=== PATIENT | female | born 1975 | race Caucasian/White ===

== ENCOUNTER 2022-04-19 15:33 | Outpatient (CLI) | payer OTHER, SELFPAY ==
[2022-04-19 21:10] LABS: Albumin* 4.5 g/dL (3.3-5.0)
[2022-04-19 21:11] LABS: Chloride* 107 mmol/L (96-114); Sodium* 140 mmol/L (135-149)
[2022-04-19 21:13] LABS: Alanine Aminotransferase* 20 U/L (4-35); Alkaline Phosphatase* 82 U/L (40-150); Aspartate Amino Transferase* 20 U/L (12-35); Bilirubin Total* 0.4 mg/dL (0.1-1.5); Blood Urea Nitrogen* 11 mg/dL (5-24); Carbon Dioxide* 29 mmol/L (20-32); Cholesterol* 178 mg/dL (90-199); Creatinine* 0.6 mg/dL (0.5-1.5); Estimated Glomerular Filt Rate 111 ml/min; Glucose* 98 mg/dL (60-115); Total Protein* 7.3 g/dL (6.0-8.3)
[2022-04-19 21:14] LABS: Calcium* 9.5 mg/dL (8.4-10.6); HDL Cholesterol* 75 mg/dL (>=50); LDL Cholesterol Calculated 72 mg/dL (<100); Triglycerides* 153 mg/dL (40-149)
[2022-04-19 21:42] LABS: TSH With Reflex to FT4* 0.947 uIU/mL (0.270-4.200)
== END 2022-04-19 15:34 | disposition home or self-care (01) ==
PROVIDERS: Visit Provider Family Medicine
DX: Z00.00 Encounter for general adult medical examination without abnormal findings (principal); R53.83 Other fatigue; F41.9 Anxiety disorder, unspecified; Z13.6 Encounter for screening for cardiovascular disorders
CPT/HCPCS: 80053; 80061; 84443

== ENCOUNTER 2022-05-11 11:02 | Outpatient (CLI) | payer OTHER, SELFPAY ==
--- NOTE | 2022-05-11 11:15 | CRLHL7_ITS ---
For Patients: As a result of the Cures Act, medical imaging exams and procedure reports are released immediately into your electronic medical record. You may view this report before your referring provider. If you have questions, please contact your health care provider. BILATERAL BREAST ULTRASOUND CLINICAL HISTORY: Six-month follow-up BILATERAL structures. COMPARISON: Outside ultrasound exam 11/09/2021. TECHNIQUE: Real-time ultrasound imaging of BILATERAL breast with imaging documentation. FINDINGS: Targeted RIGHT breast ultrasound 9 o`clock 4 cm from the nipple again demonstrates a solid and cystic nodule at mid depth measuring 8 x 4 x 5 millimeters representing a benign complicated cyst. No shadowing. No abnormal vascularity. Targeted LEFT breast ultrasound performed at 2 o`clock 8 cm from the nipple. In this location there is a simple circumscribed anechoic cyst with increased through-transmission measuring 5 x 4 x 4 millimeters. This is unchanged. Targeted LEFT breast ultrasound at 11 o`clock 3 cm from the nipple again demonstrates a circumscribed hypoechoic nodule measuring 6 x 3 x 6 millimeters, compatible with fibroadenoma. 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 No evidence of malignancy. RECOMMENDATIONS: Resume BILATERAL screening mammography November 2022. Results and recommendations were discussed with the patient at the time of the exam. BI-RADS Category 2: Benign A lay language report of this examination will be provided to the patient. Dictated by Teo Durham MD @ 05/11/2022 1:23:47 PM [email or web address]/Dictated by: Teo Durham MD @ 05/11/2022 1:23:00 PM (Electronically Signed)
== END 2022-05-11 11:03 | disposition home or self-care (01) ==
PROVIDERS: Visit Provider Obstetrics & Gynecology
DX: N63.20 Unspecified lump in the left breast, unspecified quadrant (principal); N60.01 Solitary cyst of right breast
CPT/HCPCS: 76642

== ENCOUNTER 2023-11-09 16:08 | Outpatient (CLI) | payer OTHER, SELFPAY ==
--- OUTSIDE RECORDS SUMMARY | 2023-11-09 16:13 | XMS_ITS | Encounter Summary ---
Author Organization [facility] Address [address] [address] Care Team Providers Care Kettleman Name Role Phone Kiera Brandon MD Primary Care Provide r Encounter Details Date Type Department Care Team (Late st Contact Info) Description 08/03/2012 Correspondence [facility] Obstetrics and Gynecology [address] [place] [address] Lita Villegas MD [address] [place], [place] [id number] MEDICAL STATEMNET Social History Tobacco Use Types Packs/Day Years Used Date Smoking Tobacco: Every Day Cigarettes 0.5 20 Smokeless Tobacco: Never Comments:12 cigarettes per d ay Alcohol Use Standard Drinks/Week Comments Yes 0 (1 standard drink = 0.6 oz pur e alcohol) have 4 every night beer Sex and Gender Information Value Date Recorded Sex Assigned at Not on file Gender Identity Not on file Sexual Orientation Not on file documented as of this encounter Progress Notes * Lita Villegas MD - 08/03/2012 12:00 AM CDT documented in this encounter Plan of Treatment Not on file documented as of this encounter Visit Diagnoses Not on filedocumented in this encounter Care Teams Kettleman Relationship Specialty Start Date End Date Kiera Brandon MD [address] [address] PCP - General Obstetrics Gynecology 10/29/21 documented as of this encounter
--- OUTSIDE RECORDS SUMMARY | 2023-11-09 16:13 | XMS_ITS | Encounter Summary ---
Author Organization [facility] Address [address] [address] Care Team Providers Care Commander Internal Affairs Name Role Phone Kiera Brandon MD Primary Care Provide r Encounter Details Date Type Department Care Team (Late st Contact Info) Description 07/27/2011 Scanned History External to Transferred Record, Provider LEEANN COBOS Social History Tobacco Use Types Packs/Day Years Used Date Smoking Tobacco: Never Assessed Sex and Gender Information Value Date Recorded Sex Assigned at Not on file Gender Identity Not on file Sexual Orientation Not on file documented as of this encounter Progress Notes * Transferred Record, Provider - 07/27/2011 12:00 AM CDT ATIONS PROJECT MANAGER documented in this encounter Plan of Treatment Not on file documented as of this encounter Visit Diagnoses Not on filedocumented in this encounter Care Teams Commander Internal Affairs Relationship Specialty Start Date End Date Kiera Brandon MD [address] [phone] PCP - General Obstetrics Gynecology 10/29/21 documented as of this encounter
--- OUTSIDE RECORDS SUMMARY | 2023-11-09 16:13 | XMS_ITS | Encounter Summary ---
Author Organization [facility] Address [address], [place] [address] Care Team Providers Care Inside Parts Sales Name Role Phone Kiera Brandon MD Primary Care Provide r Encounter Details Date Type Department Care Team (Late st Contact Info) Description 07/25/2012 Consent for Procedure/Treatme nt [facility] Department INFORMED CONSENT RECORD Social History Tobacco Use Types Packs/Day Years [...] as of this encounter Progress Notes * [facility], PROVIDER - 07/25/2012 12:00 AM CDT documented in this encounter Plan of Treatment Not on file documented as of this encounter Visit Diagnoses Not on filedocumented in this encounter Care Teams Inside Parts Sales Relationship Specialty Start Date End Date Kiera Brandon MD [address] [facility] [address] [place] [address] PCP - General Obstetrics Gynecology 10/29/21 documented as of this encounter
--- OUTSIDE RECORDS SUMMARY | 2023-11-09 16:13 | XMS_ITS | Clinical Summary ---
Author Organization [facility] Address [address] [place] [address] Care Team Providers Care Sterile Proc Tech Name Role Phone Kiera Brandon MD Primary Care Provide r Source Comments You are receiving this document as you are listed as the primary care provider,follow-up provider, or the patient has been referred to you for consultation.This is in compliance with the Medicare and[facility] E[facility] Incentive Program,which states Providers who transition their patient to another setting of careor provider of care or refers their patient to another provider of care shouldprovide summary care record for each transition of care or referral. [facility] Allergies Active Allergy Reactions Criticality Noted Date Comments Hydromorphone Hcl Other, see comments 3 Muscle spasm Medications Medication Sig Dispensed Refills Start Date End Date Status Probiotic Product (PROBIOTIC DAILY OR) Active CRANBERRY OR Active Active Problems Problem Noted Date Diagnosed Date Perimenopause 11/25/2020 Insomnia 11/25/2020 Hot flashes, menopausal 11/25/2020 Lung nodules 10/19/2016 Endometriosis 08/23/2012 Overview: Diagnosed via laparoscopy in 07/2012, s/p LSO Vitamin D deficiency 04/24/2012 Pelvic pain in female 02/23/2012 Tobacco use disorder 01/02/2012 Resolved Problems Problem Noted Date Diagnosed Date Resolved Date Vertigo 08/20/2015 01/22/2016 IUD (intrauterine device) in place 02/10/2012 08/23/2012 Overview: Copper T paraguard IUD Ovarian cyst 01/02/2012 08/23/2012 Immunizations Name Administration Dates Next Due Jim COVID-19 Vaccine 02/24/2021,08/13/2020 Family History Medical History Relation Name Comments Cancer, Colon Maternal Uncle Coronary Artery Disease Other 2 uncl e Hypertension Other 3 uncle Cancer, Breast Negative Family History Cancer, Ovary Negative Family History Cancer, Pancreatic Negative Family History Cancer, Prostate Negative Family History Cancer, Uterine Negative Family History Liver Disease Negative Family History Thyroid Disorder Negative Family History Relation Name Status Comments Maternal Uncle Other 1 Other 2 Other 3 Social History Tobacco Use Types Packs/Day Years Used Date Smoking Tobacco: Every Day Cigarettes 0.5 20 Started: 01/06/1999; Last attempted to quit: 01/06/2019 Smokeless Tobacco: Never Alcohol Use Standard Drinks/Week Comments Yes 0 (1 standard drink = 0.6 oz pur e alcohol) PHQ-2 Answer Date Recorded PHQ-2 Score 0 10/26/2020 Sex and Gender Information Value Date Recorded Sex Assigned at Not on file Gender Identity Not on file Sexual Orientation Not on file Last Filed Vital Signs Vital Sign Reading Time Taken Comments Blood Pressure 125/85 10/29/2021 11:18 AM CDT Pulse 85 10/29/2021 11:18 AM CDT Temperature 37 ??C (98.6 ??F) 10/26/2021 3:15 PM CDT Respiratory Rate 22 01/06/2019 1:15 PM CDT Oxygen Saturation 97% 10/26/2021 3:15 PM CDT Inhaled Oxygen Concentration - - Weight 64.7 kg (142 lb 9.6 oz) 10/29/2021 11:18 AM CDT Height 165.1 cm (5' 5) 07/24/2012 10:16 AM CDT Body Mass Index 23.73 07/24/2012 10:16 AM CDT Plan of Treatment Health Maintenance Due Date Last Done Comments Cervical Cancer Screening Due 1974 Colon Cancer Screening Plan Due 1974 Hep C Screening (Preventive Services) 1974 Pneumococcal (1 - PCV) 1980 HIV Screening (Preventive Services) 1990 Adult Preventive Visit 1992 DTaP/Tdap/Td (1 - Tdap) 1993 HepB (1) 1993 Cholesterol 2019 Mammogram 11/09/2022 11/09/2021 COVID-19 Vaccine (3 - 2022-2 4 season) 2022 02/24/2021, 08/13/2020 Influenza (#1) 2023 Zoster/Shingles (1 of 2) 2024 HepA Aged Out No longer eligi ble based on patient's age to complete this topic Hib Aged Out No longer eligi ble based on patient's age to complete this topic IPV (Polio) Aged Out No longer eligi ble based on patient's age to complete this topic MCV4 Aged Out No longer eligi ble based on patient's age to complete this topic Procedures Procedure Name Priority Date/Time Associated Diagnosis Comments MM MAMMOGRAM DIAG BILAT W 3D DALI Routine 11/09/2021 3:52 PM CDT Breast pain, left from Last 3 Months or Most Recently Relevant to Health Maintenance Results * MM Mammogram Diag Bilat W 3D Dali (11/09/2021 3:52 PM CDT) Anatomical Region Laterality Modality Breast Bilateral Mammography 11/09/2021 3:52 PM CDT Narrative 11/09/2021 4:15 PM CDT EXAM: MM MAMMOGRAM DIAG BILAT W 3D DALI, MM US BREAST BILAT LOCATION: [facility] DATE/TIME: 11/09/2021 3:52 PM INDICATION: 46-year-old female presents with left breast pain. COMPARISON: None. MAMMOGRAPHIC FINDINGS: Bilateral full-field digital diagnostic mammograms performed. There are scattered areas of fibroglandular density. Images evaluated with the assistance of CAD. Breast tomosynthesis was used in interpretation. There is an asymmetry in the lateral right breast at the 9:00 position, middle depth. Benign-appearing intramammary lymph node is present in the upper outer quadrant of the right breast. There is an obscured mass in the upper inner quadrant of the left breast at the 11:00 to 12:00 position, anterior depth. An asymmetry is also present in the upper outer quadrant of the left breast at the posterior depth. Benign-appearing intramammary lymph nodes are present in the upper outer quadrant of the left breast at the middle depth. ULTRASOUND FINDINGS: Targeted ultrasound of the right breast was performed with claims representative images submitted. In the right breast at the 9:00 position 4 cm from nipple, there is a probably benign cluster of adjacent cysts versus complicated cyst with internal debris, measuring 4 x 7 x 4 mm. No internal color vascular flow. The finding is thought to be probably benign. Follow-up ultrasound in 6 months is recommended to evaluate for stability. Targeted ultrasound the left breast was performed claims representative images submitted at the 11:00 position, 3 cm from nipple, which demonstrate a well-circumscribed oval hypoechoic mass measuring 6 x 4 x 6 mm. No internal color vascular flow. The mass is thought to be probably benign demonstrating imaging appearance is suggestive of a fibroadenoma. Follow-up ultrasound 6 months is recommended to evaluate for stability. Targeted ultrasound the upper outer quadrant of the left breast was performed with claims representative images submitted at the 2:00 position, 8 cm from nipple, which demonstrates a simple cyst measuring 5 x 3 x 4 mm. No suspicious finding.. IMPRESSION: 1. ??Probably benign mass in the left breast at the 11:00 position and probably benign cluster of cysts versus complicated cyst in the right breast at the 9:00 position, as detailed above. Follow-up bilateral breast ultrasound 6 months is recommended to evaluate for stability. 2. ??No imaging correlate to reported symptom of breast pain, for which management should be based clinically. The patient was given informational handout regarding breast pain. ACR BI-RADS Category 3: Probably Benign. Results and recommendations were discussed with the patient. Ultrasound imaging was performed by both technologist and radiologist. Procedure Note Nai Ugarte MD - 11/09/2021 EXAM: MM MAMMOGRAM DIAG BILAT W 3D DALI, MM US BREAST BILAT LOCATION: [facility] DATE/TIME: 11/09/2021 3:52 PM INDICATION: 46-year-old female presents with left breast pain. COMPARISON: None. MAMMOGRAPHIC FINDINGS: Bilateral full-field digital diagnostic mammogramsperformed. There are scattered areas of fibroglandular density. Imagesevaluated with the assistance of CAD. Breast tomosynthesis was used ininterpretation. There is an asymmetry in the lateral right breast at the9:00 position, middle depth. Benign-appearing intramammary lymph node ispresent in the upper outer quadrant of the right breast. There is anobscured mass in the upper inner quadrant of the left breast at the 11:00to 12:00 position, anterior depth. An asymmetry is also present in theupper outer quadrant of the left breast at the posterior depth.Benign- appearing intramammary lymph nodes are present in the upper outerquadrant of the left breast at the middle depth. ULTRASOUND FINDINGS: Targeted ultrasound of the right breast was performedwith claims representative images submitted. In the right breast at the 9:00position 4 cm from nipple, there is a probably benign cluster of adjacentcysts versus complicated cyst with internal debris, measuring 4 x 7 x 4mm. No internal color vascular flow. The finding is thought to be probablybenign. Follow-up ultrasound in 6 months is recommended to evaluate forstability. Targeted ultrasound the left breast was performed claims representative imagessubmitted at the 11:00 position, 3 cm from nipple, which demonstrate awell-circumscribed oval hypoechoic mass measuring 6 x 4 x 6 mm. Nointernal color vascular flow. The mass is thought to be probably benigndemonstrating imaging appearance is suggestive of a fibroadenoma.Follow-up ultrasound 6 months is recommended to evaluate for stability. Targeted ultrasound the upper outer quadrant of the left breast wasperformed with claims representative images submitted at the 2:00 position, 8 cmfrom nipple, which demonstrates a simple cyst measuring 5 x 3 x 4 mm. Nosuspicious finding.. IMPRESSION: 1. Probably benign mass in the left breast at the 11:00 position andprobably benign cluster of cysts versus complicated cyst in the rightbreast at the 9:00 position, as detailed above. Follow-up bilateral breastultrasound 6 months is recommended to evaluate for stability. 2. No imaging correlate to reported symptom of breast pain, for whichmanagement should be based clinically. The patient was given informationalhandout regarding breast pain. ACR BI-RADS Category 3: Probably Benign. Results and recommendations were discussed with the patient. Ultrasoundimaging was performed by both technologist and radiologist. Kiera Brandon MD RAD ANTHONY from Last 3 Months or Most Recently Relevant to [employer] Maintenance Advance Directives * Full Code (Latest Code Status on File) Date Activated Date Inactivated Comments 07/25/2012 5:35 AM 07/25/2012 8:29 PM Care Teams Sterile Proc Tech Relationship Specialty Start Date End Date Kiera Brandon MD [address] [address] PCP - General Obstetrics Gynecology 10/29/21
--- OUTSIDE RECORDS SUMMARY | 2023-11-09 16:13 | XMS_ITS | Encounter Summary ---
Author Organization [facility] Address [address] [place] [address] Care Team Providers Care Park Landscape Architect Name Role Phone Kiera Brandon MD Primary Care Provide r Reason for Visit * Reason Comments QUESTIONS, GENERAL SHINGLES Encounter Details Date Type Department Care Team (Late st Contact Info) Description 05/31/2023 Telephone Careline [address] [place] [address] Unassigned, Provider [address] [place] [address] QUESTIONS, GENERAL; SHINGLES Social History Tobacco Use Types Packs/Day Years [...] on file documented as of this encounter Nursing Notes * Soumya Meade - 05/31/2023 3:06 PM CST Verified patient identity using three identifiers: Yes Caller's relationship to patient: Self, Do you have a provider/clinic where you are seen for this? AKIKO/Tony/Lanette/Danie Are you calling about a /CORPORATE RELATIONS MANAGER related concern? No General Questions/Information Describe the reason for call: Patient states she has been exposed to shingles and wondering what precautions she and her partner need to take. Patient did start shingles medication. Plan: If no symptoms present AND clinic is open or will be open within the next 24 hours, route to the clinic silk spooler. GER MANUFACTURING documented in this encounter Plan of Treatment Not on file documented as of this encounter Visit Diagnoses Not on filedocumented in this encounter Care Teams Park Landscape Architect Relationship Specialty [place] [address] [place] [id number] PCP - General Obstetrics Gynecology 10/29/21 documented as of this encounter
== END 2023-11-09 16:09 | disposition home or self-care (01) ==
PROVIDERS: PCP Family Medicine; Visit Provider Family Medicine
DX: R53.83 Other fatigue (principal); K52.9 Noninfective gastroenteritis and colitis, unspecified
CPT/HCPCS: 80053; 84443; 86231; 86258; 86364

== ENCOUNTER 2023-11-17 10:34 | Outpatient (CLI) | payer MEDICAID, SELFPAY ==
--- OUTSIDE RECORDS SUMMARY | 2023-11-17 10:37 | XMS_ITS | Encounter Summary ---
Author Organization [facility] Address [address] [place] [address] Care Team Providers Care Outpatient Interviewing Clerk Name Role Phone Kiera Brandon MD Primary Care Provide r Reason for Visit * Reason Comments QUESTIONS, GENERAL SHINGLES Encounter Details Date Type Department Care Team (Late st Contact Info) Description 05/31/2023 Telephone Careline [address] [place] [address] Unassigned, Provider [address] [place] [address] QUESTIONS, GENERAL; SHINGLES Social History Tobacco Use [...] this? AKIKO/Tony/Lanette/Danie Are you calling about a /RECORD LABEL INTERN related concern? No General Questions/Information Describe the reason for call: Patient states she has been exposed to shingles and wondering what precautions she and her partner need to take. Patient did start shingles medication. Plan: If no symptoms present AND clinic is open or will be open within the next 24 hours, route to the clinic pool servicer. VISION CAMERAMAN documented in this encounter Plan of Treatment Not on file documented as of this encounter Visit Diagnoses Not on filedocumented in this encounter Care Teams Outpatient Interviewing Clerk Relationship Specialty [place] [address] [place] [id number] PCP - General Obstetrics Gynecology 10/29/21 documented as of this encounter
--- OUTSIDE RECORDS SUMMARY | 2023-11-17 10:37 | XMS_ITS | Encounter Summary ---
Author Organization [facility] Address [address], [place] [address] Care Team Providers Care Hot Baller Name Role Phone Kiera Brandon MD Primary [...] Record, Provider - 07/27/2011 12:00 AM CDT NICAL INSTRUCTOR COURSE DEVELOPER documented in this encounter Plan of Treatment Not on file documented as of this encounter Visit Diagnoses Not on filedocumented in this encounter Care Teams Hot Baller Relationship Specialty Start Date End Date Kiera Brandon MD [address] [phone] PCP - General Obstetrics Gynecology 10/29/21 documented as of this encounter
--- OUTSIDE RECORDS SUMMARY | 2023-11-17 10:37 | XMS_ITS | Encounter Summary ---
Author Organization [facility] Address [address], [place] [address] Care Team Providers Care Equities Analyst Name Role Phone Kiera Brandon MD Primary Care Provide r Encounter Details Date Type Department Care Team (Late st Contact Info) Description 08/03/2012 Correspondence [facility] Obstetrics and Gynecology [address] [place] [address] Lita Villegas MD [address] [place], [place] [phone] MEDICAL STATEMNET Social History Tobacco Use Types [...] on filedocumented in this encounter Care Teams Equities Analyst Relationship Specialty Start Date End Date Kiera Brandon MD [address] [address] PCP - General Obstetrics Gynecology 10/29/21 documented as of this encounter
--- OUTSIDE RECORDS SUMMARY | 2023-11-17 10:37 | XMS_ITS | Clinical Summary ---
Author Organization [facility] Address [address] [place] [address] Care Team Providers Care Service Unit Operator Oil Well Name Role Phone Kiera Brandon MD Primary Care Provide r Source Comments You are receiving this document as you are listed as the primary care provider,follow-up provider, or the patient has been referred to you for consultation.This is in compliance with the Medicare and[facility] E[facility] Incentive Program,which states Providers who transition their patient to another setting of careor provider of care or refers their patient to another provider of care shouldprovide summary care record for each transition of care or referral. [facility] Allergies Active Allergy Reactions Criticality Noted Date [...] of the right breast was performed with business center representative images submitted. In the right breast [...] Targeted ultrasound the left breast was performed business center representative images submitted at the 11:00 position, [...] of the left breast was performed with business center representative images submitted at the 2:00 position, [...] 3D DALI, MM US BREAST BILAT LOCATION: [facility] DATE/TIME: 11/09/2021 3:52 PM INDICATION: 46-year-old female [...] ultrasound of the right breast was performedwith business center representative images submitted. In the right breast at the 9:00position 4 cm from nipple, there is a probably benign cluster of adjacentcysts versus complicated cyst with internal debris, measuring 4 x 7 x 4mm. No internal color vascular flow. The finding is thought to be probablybenign. Follow-up ultrasound in 6 months is recommended to evaluate forstability. Targeted ultrasound the left breast was performed business center representative imagessubmitted at the 11:00 position, 3 cm from nipple, which demonstrate awell-circumscribed oval hypoechoic mass measuring 6 x 4 x 6 mm. Nointernal color vascular flow. The mass is thought to be probably benigndemonstrating imaging appearance is suggestive of a fibroadenoma.Follow-up ultrasound 6 months is recommended to evaluate for stability. Targeted ultrasound the upper outer quadrant of the left breast wasperformed with business center representative images submitted at the 2:00 position, [...] 3 Months or Most Recently Relevant to [employer] Maintenance Advance Directives * Full Code (Latest Code Status on File) Date Activated Date Inactivated Comments 07/25/2012 5:35 AM 07/25/2012 8:29 PM Care Teams Service Unit Operator Oil Well Relationship Specialty Start Date End Date Kiera Brandon MD [address] [address] PCP - General Obstetrics Gynecology 10/29/21
--- OUTSIDE RECORDS SUMMARY | 2023-11-17 10:37 | XMS_ITS | Encounter Summary ---
Author Organization [facility] Address [address], [place] [address] Care Team Providers Care Habitat Management Coordinator Name Role Phone Kiera Brandon MD Primary Care Provide r Encounter Details Date Type Department Care Team (Late st Contact Info) Description 07/25/2012 Consent for Procedure/Treatme nt [facility] Department INFORMED CONSENT RECORD Social History Tobacco [...] on filedocumented in this encounter Care Teams Habitat Management Coordinator Relationship Specialty Start Date End Date Kiera Brandon MD [address] [facility] [address] [place] [address] PCP - General Obstetrics Gynecology 10/29/21 documented as of this encounter
--- NOTE | 2023-11-17 10:45 | CRLHL7_ITS ---
For Patients: As a result of the Cures Act, medical imaging exams and procedure reports are released immediately into your electronic medical record. You may view this report before your referring provider. If you have questions, please contact your health care provider. DIGITAL DIAGNOSTIC BILATERAL MAMMOGRAM USING TOMOSYNTHESIS AND COMPUTER-AIDED DETECTION RIGHT BREAST ULTRASOUND CLINICAL HISTORY: RIGHT breast lump. COMPARISON: 11/09/2021. TECHNIQUE: Digital BILATERAL mammogram in four projections with computer-aided detection. Tomosynthesis was used in this interpretation. Real-time ultrasound imaging of RIGHT breast with imaging documentation. BREAST COMPOSITION: There are areas of scattered fibroglandular density. FINDINGS: 3D CC/MLO BILATERAL mammogram images submitted. Benign nodular densities are present bilaterally. No architectural distortion or suspicious calcifications. No axillary adenopathy. Targeted RIGHT breast ultrasound performed 5 o`clock 6 cm from the nipple. Hypoechoic fluid is present within the epidermal layer measuring 1.6 x 0.3 x 1.5 cm. No internal vascularity. IMPRESSION: Hypoechoic fluid within the epidermis measuring 1.6 x 0.3 x 1.5 cm consistent with inflammation. No evidence of malignancy. Consider treatment with antibiotics. RECOMMENDATIONS: Clinical follow-up and routine screening mammography. Antibiotics should be considered. Results and recommendations discussed with the patient. BI-RADS Category 2: Benign A lay language report of this examination will be provided to the patient. Dictated by Teo Durham MD @ 11/17/2023 11:28:29 AM jj/Dictated by: Teo Durham MD @ 11/17/2023 11:28:00 AM (Electronically Signed)
--- NOTE | 2023-11-17 11:15 | CRLHL7_ITS ---
For Patients: As a result of the Cures Act, medical imaging exams and procedure reports are released immediately into your electronic medical record. You may view this report before your referring provider. If you have questions, please contact your health care provider. PLEASE SEE DIGITAL DIAGNOSTIC BILATERAL MAMMOGRAM PERFORMED SAME DAY CRL:[email or web address] [email or web address]/Dictated by: Teo Durham MD @ 11/17/2023 11:29:00 AM (Electronically Signed)
== END 2023-11-17 10:35 | disposition home or self-care (01) ==
LOC: MAMMO 10:35
PROVIDERS: PCP Family Medicine; Visit Provider Family Medicine
DX: N63.15 Unspecified lump in the right breast, overlapping quadrants (principal)
CPT/HCPCS: 76642; 77066; G0279

== ENCOUNTER 2024-05-07 10:05 | Outpatient (CLI) | payer MEDICAID, SELFPAY | END 2024-05-07 10:06 | disposition home or self-care (01) | LOC: NFLDREF 10:06 | PROVIDERS: PCP Family Medicine; Visit Provider Family Medicine | DX: N39.0 Urinary tract infection, site not specified (principal); B96.20 Unspecified Escherichia coli [E. coli] as the cause of diseases classified elsewhere | CPT/HCPCS: 87086 ==

== ENCOUNTER 2025-02-13 10:01 | Outpatient (CLI) | payer BC, SELFPAY | END 2025-02-13 10:02 | disposition home or self-care (01) | PROVIDERS: PCP Family Medicine; Visit Provider Family Medicine | DX: N39.0 Urinary tract infection, site not specified (principal); F10.10 Alcohol abuse, uncomplicated; R53.81 Other malaise; R53.83 Other fatigue; R82.998 Other abnormal findings in urine | CPT/HCPCS: 80053; 82977; 87086 ==